=== PATIENT | female | born 1940 | race Caucasian/White ===

== ENCOUNTER 2018-12-22 12:32 | Emergency (ER) | payer OTHER ==
[~2018-12-22] VITALS: Ht 152.4 cm; Wt 72.6 kg
[2018-12-22 12:34] VITALS: Ht 152.4 cm; Wt 72.6 kg
[2018-12-22 15:40] VITALS: BP 106/64
== END 2018-12-22 15:51 | disposition home or self-care (01) ==
LOC: ED 12:32
DX: S52.502A Unspecified fracture of the lower end of left radius, initial encounter for closed fracture (principal); S52.602A Unspecified fracture of lower end of left ulna, initial encounter for closed fracture; S16.1XXA Strain of muscle, fascia and tendon at neck level, initial encounter; S09.8XXA Other specified injuries of head, initial encounter; S49.92XA Unspecified injury of left shoulder and upper arm, initial encounter; S89.92XA Unspecified injury of left lower leg, initial encounter; S79.912A Unspecified injury of left hip, initial encounter; I10 Essential (primary) hypertension; V89.2XXA Person injured in unspecified motor-vehicle accident, traffic, initial encounter; Y93.89 Activity, other specified; Y92.89 Other specified places as the place of occurrence of the external cause; Y99.8 Other external cause status